=== PATIENT | female | born 2000 | race Caucasian/White ===

== ENCOUNTER 2019-05-30 10:59 | Emergency (ER) | payer OTHER, SELFPAY ==
[2019-05-30 11:01] VITALS: BP 123/85; PULSE 115; RESP 22; TEMP 36.4; O2SAT 98; BMI 30.2
--- NOTE | 2019-05-30 11:35 | ED.VISSUMM ---
- ER Visit Summary Date of Service: 05/30/19 Chief Complaint: Shortness of breath History of Present Illness: The patient is a 19 F who presents with shortness of breath that began yesterday. Patient states is gradually gotten worse. Patient states her breathing is worse with exertion. Patient admits to cough but denies any sputum production. Patient also admits to sore throat ear pain and rhinorrhea. Patient states she had a recent fever up to 103. 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 Patient went to the clinic at the [facility] and had a rapid strep test which was negative. Physical Examination: Vital signs are stable except for mild tachycardia 115. Patient is afebrile. Patient is in no acute distress. Oral mucosa is pink and moist. Oropharynx shows some mild erythema but there are no exudates. Neck is supple. Trachea is midline. There is no JVD noted. There is no lymphadenopathy noted. Heart was regular rate and rhythm. Lungs are clear and equal bilaterally. Abdomen is soft. Bowel sounds are normal. There is no tenderness. Cranial nerves II through XII are intact. There are no focal motor or sensory deficits noted. Test Results: CBC shows a mild leukocytosis of 12.9. Creatinine was 1.26. Influenza swab is negative. PA and lateral chest x-rays obtained and was negative. The remaining labs are all within normal limits. Emergency Department Course and Treatment: Patient is feeling better on reevaluation. Patient was advised that this is most likely a viral upper respiratory infection. Patient was instructed to follow-up with her primary care physician in 5 to 7 days. Patient was instructed to take Tylenol or ibuprofen as needed for pain or fever. Patient was instructed to return if worse in any way. Patient understood and was agreeable with the plan. All questions were answered. Disposition: Discharge home Impression: Viral upper respiratory infection This note was generated with [employer] dictation software. It may contain incorrect words, spelling, and punctuation that were not noted in review of the chart prior to signing ED Disposition - Plan for ED Patient: Disposition: Home or Assisted Living Diagnosis: Viral upper respiratory infection Instructions: URI, Viral, No Abx (Adult) Referrals: CYNTHIA PASTOR [Other] - 5-7 Days
[2019-05-30 11:53] LABS: Absolute Neutrophil Count 10.4 X10^3/uL (2.0-7.7); Basophil# 0.03 X10^3/uL; Basophil% 0.2 % (0-1); Eosinophil# 0.03 X10^3/uL; Eosinophils% 0.2 % (0-5); Hematocrit 42.2 % (37-47); Hemoglobin 14.4 g/dL (12.0-15.0); Lymphocyte % 13.2 % (19-41); Mean Corp Hgb Conc 34.1 g/dL (32-36); Mean Corpuscular Hgb 29.9 pg (27.0-32.0); Mean Corpuscular Volume 87.6 fL (81-99); Mean Platelet Vol. 10.1 fl (6.2-12.0); Monocyte# 0.66 X10^3/uL; Monocyte% 5.1 % (0-10); NRBC Flagged by Analyzer 0 % (0-5); Neutrophil # 10.42 X10^3/uL (2.7-7.7); Platelet Count 227 K/mm3 (150-450); RBC Distribution Width CV 12.3 % (11.6-14.6); RBC Distribution Width SD 39.2 fl (35.1-43.9); Red Blood Count 4.82 M/mm3 (4.2-5.4); White Blood Count 12.9 K/mm3 (4.4-11.0)
--- NOTE | 2019-05-30 11:53 | RAD_ITS ---
STUDY: X-RAY CHEST REASON FOR EXAM: Female, 19 years old. Chest pain, shortness of breath TECHNIQUE: PA and lateral views of the chest. COMPARISON: None. FINDINGS: The lungs are clear and expanded. There is no demonstrated pleural abnormality. Normal size heart. Normal mediastinum and davin. Normal visualized pulmonary arteries. Normal visualized aortic arch and descending thoracic aorta. Normal visualized thoracic spine. Normal visualized ribs, clavicles, and shoulders. There is no demonstrated abnormality of the visualized soft tissue structures of the upper abdomen. RAD/Chest PA and Lateral IMPRESSION: Normal x-ray examination of the chest. Electronically Signed: Akhil Segura MD at 14:10 EDT Tel , Service support ,
[2019-05-30 12:08] LABS: Anion Gap 5 (5-15); BUN 10 mg/dL (7-18); BUN/Creat Ratio 7.9 RATIO (10-20); Calcium,Total 8.9 mg/dL (8.5-10.1); Chloride 107 mmol/L (98-107); Creatinine, Serum 1.26 mg/dL (0.55-1.02); EST Glomerular Filtration Rate 58 mL/min (>60); Est Glom Filt Rate - Afr Amer 70 mL/min (>60); Estimated Creatinine Clearance 74.43 ml/min; Glucose 93 mg/dL (74-106); Sodium Level 136 mmol/L (136-145)
[2019-05-30 14:47] VITALS: BP 110/66; PULSE 90; RESP 16; TEMP 36.8; O2SAT 100
== END 2019-05-30 14:55 | disposition home or self-care (01) ==
PROVIDERS: Emergency Provider Emergency Medicine
DX: J06.9 Acute upper respiratory infection, unspecified (principal); R11.2 Nausea with vomiting, unspecified; M54.2 Cervicalgia; F32.9 Major depressive disorder, single episode, unspecified; F41.9 Anxiety disorder, unspecified; E66.9 Obesity, unspecified
CPT/HCPCS: 71046; 80048; 85025; 87804; 99283

== ENCOUNTER 2019-06-13 14:35 | Emergency (ER) | payer OTHER, SELFPAY ==
[2019-06-13 14:36] VITALS: BP 138/82; PULSE 96; RESP 18; TEMP 36.6; O2SAT 97; BMI 29.7
--- NOTE | 2019-06-13 14:59 | ED.VIS.GEN ---
History of Present Illness Chief Complaint: Shortness of Breath Detail of Chief Complaint: Rattling in chest Informant: Patient Onset: Yesterday Current Severity: Mild Maximum Severity: Moderate Narrative: Patient presents with a rattling sensation in her chest over the past 24 hours. She has had URI type symptoms over the past 3 or 4 days. She denies wheezing. She is not bringing up any sputum. She does report having a low-grade fever. She had a sore throat a few weeks ago but tested negative for strep. Her college roommate is ill with similar. Past Medical History - Allergies and Home Meds Allergies/Adverse Reactions: Allergies clindamycin Allergy (Verified 06/13/19 14:38) Rash sulfamethoxazole [From Bactrim] Allergy (Verified 06/13/19 14:38) Rash trimethoprim [From Bactrim] Allergy (Verified 06/13/19 14:38) Rash Primary Care Physician: CYNTHIA PASTOR [Other] Prior records reviewed: Yes Past Medical History: - - Reviewed Lives: Roommate Smoking Status: Never smoker Review of Systems General: Reports: Fever, Subjective. Denies: Chills Eyes: Denies: Visual changes - bilaterally ENT: Denies: Bilateral ear pain Cardiovascular: Denies: Chest pain Respiratory: Reports: Dyspnea, Cough. Denies: Sputum Gastrointestinal: Denies: Abdominal pain, Nausea, Vomiting, Diarrhea Genitourinary: Denies: Dysuria Musculoskeletal: Denies: Back pain Skin: Denies: Rash Neurological: Denies: Headache Physical Exam Vital Signs/Narrative: Vital Signs Temp Pulse Resp BP Pulse Ox 06/13/19 14:36 97.9 F 96 18 138/82 H 97 Inital Vital Signs reviewed: Yes General: Well nourished, Well developed Eyes: EOMI ENT: Moist mucous membranes Neck: Supple Cardiovascular: Regular rate, Regular rhythm Respiratory: No distress, Rhonchi - Mild rhonchi throughout. No wheezing appreciated. Abdomen: Soft, Nontender Back: Nontender Extremities: Nontender Skin: Normal color Neurological: Alert, Oriented x3 Psychological: Normal affect Diagnostic/Tx/Re-eval Chest X-Ray - ED: 2 View, Read by ED Physician, - - No focal infiltrate. - Medical Decision Making Is given a DuoNeb treatment here. On repeat evaluation rhonchi are significantly improved. She has mild end expiratory wheeze at the right base. I do not see focal infiltrate on her x-ray. She will be treated with a course of Zithromax as well as steroids and an albuterol inhaler. ED Disposition - Plan for ED Patient: Disposition: Home or Assisted Living Diagnosis: Bronchitis Instructions: BRONCHITIS, Antiobiotic Treatment (Adult) Prescriptions: Prednisone [Deltasone] 40 mg PO DAILY #10 tablet Albuterol Inhaler [Ventolin Hfa] 1 - 2 puff INHALATION Q4H PRN PRN #1 inhaler PRN Reason: Wheezing Azithromycin [Zithromax] 250 mg PO DAILY #4 tablet Referrals: CYNTHIA PASTOR [Other] Center,[facility] [GROUP OF PHYSICIANS] -
[2019-06-13 15:24] VITALS: PULSE 105; RESP 16
[2019-06-13] MEDS: Ipratropium/Albuterol Sulfate 3 ML AMPUL.NEB INHALATION (15:24)
--- NOTE | 2019-06-13 15:30 | RAD_ITS ---
STUDY: X-RAY CHEST REASON FOR EXAM: Female, 19 years old. Cough, shortness of breath and fever. TECHNIQUE: PA and lateral views of the chest. COMPARISON: Comparison is made with prior study dated May 30, 2019. FINDINGS: The lungs are clear and expanded. There is no demonstrated pleural abnormality. Normal size heart. Normal mediastinum and davin. Normal visualized pulmonary arteries. Normal visualized aortic arch and descending thoracic aorta. Normal visualized thoracic spine. Normal visualized ribs, clavicles, and shoulders. There is no demonstrated abnormality of the visualized soft tissue structures of the upper abdomen. RAD/Chest PA and Lateral IMPRESSION: Normal x-ray examination of the chest. Electronically Signed: Fady Harden, at 15:48 EDT , Service support ,
[2019-06-13 16:12] VITALS: BP 124/71; PULSE 96; RESP 16; O2SAT 95
[2019-06-13] MEDS: predniSONE 20 MG Tablet 40 MG PO (16:12)
[2019-06-13] MEDS: Azithromycin 250 MG Tablet 500 MG PO (16:12)
== END 2019-06-13 16:16 | disposition home or self-care (01) ==
PROVIDERS: Emergency Provider Emergency Medicine
DX: J40 Bronchitis, not specified as acute or chronic (principal); Z88.2 Allergy status to sulfonamides; Z88.1 Allergy status to other antibiotic agents; Z79.899 Other long term (current) drug therapy
CPT/HCPCS: 71046; 94640; 99283

== ENCOUNTER 2021-10-22 13:30 | Emergency (ER) | payer OTHER, SELFPAY ==
[2021-10-22 13:30] VITALS: BP 139/80; PULSE 113; RESP 16; TEMP 36.6; O2SAT 96; BMI 29.5
--- NOTE | 2021-10-22 13:44 | EDS_ITS ---
HPI History of Present Illness Chief Complaint: Back Informant: patient Onset/Context/Timing Onset: Days (5) Context: Sudden Onset Injury: direct trauma Timing: Continuous Quality: Sharp and Aching Location: Lumbar Worsened by: improves with Movement Relieved by: Nothing Associated Symptoms Associated Symptoms: Radiation to Right Leg and Abdominal Pain; Negative for Numbness, Tingling, Radiation to Left Leg, Fever, Dysuria, Unable to Ambulate, Unable to Transfer, Urinary Retention, Urinary Incontinence, Constipation and Fecal Incontinence Narrative Narrative: Patient presents with back pain that began 5 days ago. Patient states she slipped and fell into a side mirror of a car while walking in a parking lot. Patient states her pain radiates down her right leg. Patient denies any paresthesias or weakness. Patient denies any bowel or bladder changes. Patient denies any saddle anesthesia. Patient states she does have some pain that radiates into her abdomen. Patient admits to some mild nausea due to the pain. Patient denies any vomiting. [facility] Medical History (Updated 10/22/21 @ 14:[address] Roc Redman DO) ADD (attention deficit disorder) Anxiety Gastroparesis Home Medications alprazolam 1.5 mg PO DAILY 06/13/19 [History Last Taken Unknown] clonazepam 0.5 mg PO DAILY 06/13/19 [History Last Taken Unknown] drospirenone-ethinyl estradiol 1 ea PO DAILY 06/13/19 [History Last Taken Unknown] omeprazole 50 mg PO BID 06/13/19 [History Last Taken Unknown] dextroamphetamine-amphetamine [Adderall XR] 20 mg PO DAILY 10/22/21 [History Last Taken Unknown] escitalopram oxalate 10 mg PO DAILY 10/22/21 [History Last Taken Unknown] hydrocodone-acetaminophen 1 tab PO Q6H PRN PRN 3 Days #10 tablet 10/22/21 [Rx Last Taken Unknown] Allergy/AdvReac Type Severity Reaction Status Date / Time clindamycin Allergy Rash Verified 10/22/21 13:32 sulfamethoxazole Allergy Rash Verified 10/22/21 13:32 [From Bactrim] trimethoprim [From Bactrim] Allergy Rash Verified 10/22/21 13:32 Surgical History (Updated 10/22/21 @ 13:[address] Roc Redman DO) Hx of knee surgery S/P tonsillectomy and adenoidectomy Social History Smoking Status: Never smoker ROS ROS ED Constitutional Constitutional ED: Denies chills or fever(s) Eyes Eyes: Denies blurry vision or change in vision ENT ENT ED: Denies rhinorrhea or sore throat Cardiovascular Cardiovascular: Denies chest pain or palpitations Respiratory/Chest Respiratory/Chest: Denies cough or dyspnea Gastrointestinal Gastrointestinal: Reports nausea; Denies vomiting Genitourinary Genitourinary ED: Denies dysuria or hematuria Musculoskeletal Musculoskeletal: Reports back pain; Denies neck pain Integumentary Denies abscess or rash Neurologic Neurologic: Denies headache(s) or weakness Allergic/Immunologic Allergic/Immunologic ED: Denies mouth swelling or urticaria EXAM Physical Exam Const Vital Signs: 10/22/21 13:30 Temperature 97.8 F Temperature Source Temporal Pulse Rate 113 H Respiratory Rate 16 Blood Pressure 139/80 H Blood Pressure Mean 99 Pulse Ox 96 Oxygen Delivery Method Room Air Positive well nourished and well developed General Appearance ED: well developed HEENT Reports moist mucous membranes Neck supple and no JVD Back/Spine Back/Spine Narrative: There is mild tenderness over the lower lumbar spine and paraspinal muscles. There is no edema or ecchymosis. There is no bony crepitance or step-off. Range of motion was limited in all motions of the lumbar spine secondary to pain. Strength is 5/5 bilaterally in the lower extremities. There are no sensory deficits noted. Deep tendon reflexes are 2+/4 bilaterally in the lower extremities. Lumbar Spine / Lower Back: ROM limited and straight leg raise negative bilaterally Neuro oriented x3 and no sensory deficits noted Sensorium / Orientation: alert Motor Exam: strength 5/5 throughout Deep Tendon Reflexes: Rt Patellar (L4): 2+, Lt Patellar (L4): 2+, Rt Ankle (S1): 2+ and Lt Ankle (S1): 2+ Deep Tendon Reflexes Back: Rt Patellar (L4): 2+, Lt Patellar (L4): 2+, Rt Ankle (S1): 2+ and Lt Ankle (S1): 2+ Psych mental status grossly normal MDM MDM MDM Narrative Medical decision making narrative: Patient was given a dose of [place] here. X- rays of the lumbar spine were obtained. There are 2 views. On my interpretation, there is no acute fracture. There is slight spondylolisthesis of L5 on S1. Radiologist also interpreted the x-ray and agrees. Patient was given a prescription for a short course of [place]. Patient was referred to a primary care physician for follow-up care in 3 to 5 days. Patient understood and was agreeable with the plan. All questions were answered. Radiography Diagnostic Testing: Clinical Impression(s) from Imaging Studies Lumbar Spine X-Ray 10/22/21 13:57 IMPRESSION: Minimal anterior listhesis of L5 on S1. I suspect spondylolysis of the pars interarticularis of the L5 vertebrae. Electronically Signed: Fady Harden MD at 14:36 EST , Discharge Plan Triage Chief Complaint: Back ED Provider: Roc Redman Dx/Rx/DC Orders Clinical Impression: Acute low back pain Instructions: ED Back Sprain/Strain Prescriptions: New hydrocodone-acetaminophen [hydrocodone-acetaminophen] 1 TABLET tablet 1 tab PO Q6H PRN PRN (Reason: Pain) 3 Days Qty: 10 RF: 0 No Action clonazepam 0.5 MG tablet 0.5 mg PO DAILY RF: 0 omeprazole 40 MG capsule,delayed release(DR/EC) 50 mg PO BID RF: 0 alprazolam 1 MG tablet extended release 24 hr 1.5 mg PO DAILY RF: 0 drospirenone-ethinyl estradiol 1 EACH tablet 1 ea PO DAILY RF: 0 dextroamphetamine-amphetamine [Adderall XR] 20 mg capsule,extended release 24hr 20 mg PO DAILY RF: 0 escitalopram oxalate 10 mg tablet 10 mg PO DAILY RF: 0 Primary Care Provider: Niko Fountain Referrals: Niok Fountain MD [Primary Care Provider] - Roc Herrera MD [STAFF PHYSICIAN] - 3-5 Days Disposition Disposition: Home, Self Care
--- NOTE | 2021-10-22 13:55 | ED.RN ---
PT. AWARE OF MEDICATION ORDER FOR NORCO AND THE NEED FOR A RIDE PRESENT AT BEDSIDE BEFORE ADMINISTERED. PT. IS CALLING SOMEONE.
--- NOTE | 2021-10-22 13:57 | RAD_ITS ---
STUDY: X-RAY - LUMBAR SPINE REASON FOR EXAM: Female, 21 years old. Injury/Pain TECHNIQUE: 2 view(s) of the lumbar spine were obtained. COMPARISON: None FINDINGS: Normal lumbar lordosis. There is no substantial scoliosis. Minimal anterior listhesis of L5 on S1. I suspect spondylolysis of the pars interarticularis of the L5 vertebrae. Normal vertebral bodies and endplates. Normal disc space heights. The soft tissue structures are unremarkable. RAD/Lumbar Spine 2 or 3 Views IMPRESSION: Minimal anterior listhesis of L5 on S1. I suspect spondylolysis of the pars interarticularis of the L5 vertebrae. Electronically Signed: Fady Harden MD at 14:36 EST ,
[2021-10-22] MEDS: HYDROcodone Bitartrate/Apap 5/325 Tablet PO (14:06)
[2021-10-22 14:57] VITALS: PULSE 68; O2SAT 98
== END 2021-10-22 14:57 | disposition home or self-care (01) ==
PROVIDERS: Emergency Provider Emergency Medicine; PCP Pediatrics; Visit Provider Emergency Medicine
DX: M54.50 Low back pain, unspecified (principal); F41.9 Anxiety disorder, unspecified; F98.8 Other specified behavioral and emotional disorders with onset usually occurring in childhood and adolescence; Z79.899 Other long term (current) drug therapy
CPT/HCPCS: 72100; 99283

== ENCOUNTER → 2021-12-23 17:06 | Outpatient (CLI) | payer OTHER, SELFPAY ==
[2021-12-24 08:34] LABS: Hepatitis B Surface Antibody Non-Reactive
[2021-12-29 12:00] LABS: QNTFERON TB Mitogen Value > 10.00 IU/mL (.); QNTFERON TB Nil Value 0.04 IU/mL (.); QNTFERON TB1+ Ag Value 0.05 IU/mL (.); QNTFERON TB2+ Ag Value 0.06 IU/mL (.)
[2021-12-29 16:12] LABS: QNTIFERON TB Positive Criteria Negative (Negative); V-Zoster IgG (Immunity) 1198 index (Immune >165)
== END ==
PROVIDERS: PCP Pediatrics
DX: Z01.84 Encounter for antibody response examination (principal); Z11.1 Encounter for screening for respiratory tuberculosis
CPT/HCPCS: 36415; 86480; 86706; 86787